=== PATIENT | female | born 1960 | race African-American/Black ===

== ENCOUNTER 2019-02-20 05:11 | Inpatient (IN) ==
[2019-02-20] MEDS ORDERED: LR 1,000 ML ONE ×2 (06:03→06:26)
[2019-02-20] MEDS ORDERED: KEFZOL 2 GM/D5W 2 GM/50 ML IVPB ONE (06:03)
[2019-02-20] MEDS ORDERED: REGLAN ONE (06:03)
[2019-02-20] MEDS ORDERED: PEPCID ONE (06:03)
[2019-02-20] MEDS ORDERED: SENSORCAINE-MPF 0.5%/EPI 1:200,000 ONE (06:26)
[2019-02-20] MEDS ORDERED: DIPRIVAN 1% ONE (06:28)
[2019-02-20] MEDS ORDERED: ROBINUL ONE ×2 (07:26→09:22)
[2019-02-20 09:18] LABS: URINE SOURCE CLEAN CATCH
[2019-02-20] MEDS ORDERED: NEOSTIGMINE ONE (09:23)
[2019-02-20 09:33] LABS: BILIRUBIN URINE NEGATIVE (NEGATIVE); BLOOD URINE SMALL (NEGATIVE); COLOR YELLOW; GLUCOSE URINE NEGATIVE (NEGATIVE); KETONE URINE NEGATIVE (NEGATIVE); LEUKOCYTES URINE LARGE (NEGATIVE); NITRITE URINE NEGATIVE (NEGATIVE); PH URINE 5.5; PROTEIN URINE 30 mg/dL (NEGATIVE); TURBIDITY URINE CLEAR (CLEAR); UROBILINOGEN URINE NORMAL (NORMAL)
[2019-02-20 09:34] LABS: UR EPITHELIAL CELLS <10 /HPF (<10); URINE BACTERIA NEGATIVE /HPF; URINE RBC <10 /HPF (<10); URINE WBC <10 /HPF (<10)
[2019-02-20] MEDS ORDERED: NS 1,000 ML ONE (10:47)
[2019-02-20] MEDS ORDERED: DILAUDID ONE (10:47)
[2019-02-20] MEDS ORDERED: MORPHINE IV PRN (12:05)
[2019-02-20] MEDS ORDERED: PHENERGAN PR PRN (12:15)
[2019-02-20] MEDS ORDERED: NORCO-7.5 PO PRN (12:15)
[2019-02-20] MEDS ORDERED: SODIUM CHLORIDE 0.9% INJ PRN (12:15)
[2019-02-20] MEDS ORDERED: NORCO-5 PO PRN (12:15)
[2019-02-20] MEDS ORDERED: OFIRMEV 1000 MG/ISOTONIC SOLN 1,000 MG/100 ML BOTTLE IV PRN (12:15)
[2019-02-20] MEDS ORDERED: DILAUDID IV PRN (12:15)
[2019-02-20] MEDS ORDERED: PHENERGAN PO PRN (12:15)
[2019-02-20] MEDS ORDERED: LABETALOL IV PRN (12:15)
[2019-02-20] MEDS ORDERED: BENADRYL LIQUID PO PRN (12:15)
[2019-02-20] MEDS ORDERED: ZOFRAN IV PRN (12:15)
[2019-02-20] MEDS ORDERED: TYLENOL PO PRN (12:15)
[2019-02-20] MEDS ORDERED: PHENERGAN IV PRN (12:15)
[2019-02-20] MEDS ORDERED: BENADRYL IV PRN (12:15)
[2019-02-20] MEDS ORDERED: COLCRYS PO PRN (14:55)
[2019-02-20] MEDS: KEFZOL 2 GM/D5W 2 GM/50 ML IVPB IV SCH ×2 (15:26→23:49)
[2019-02-20] MEDS: NORCO-10 PO PRN ×2 (17:50→21:49)
[2019-02-20] MEDS: NS 1,000 ML IV SCH ×2 (21:46→23:44)
[2019-02-20] MEDS: PERIDEX MT SCH (21:46)
[2019-02-20] MEDS: GLUCOPHAGE PO SCH (21:46)
[2019-02-20] MEDS: COLACE PO SCH (21:46)
[2019-02-21] MEDS: NORCO-10 PO PRN (05:48)
[2019-02-21] MEDS: KEFZOL 2 GM/D5W 2 GM/50 ML IVPB IV SCH (06:22)
[2019-02-21 06:50] LABS: HEMATOCRIT 34.2 % (37.0-47.0); HEMOGLOBIN 10.3 g/dL (12.0-16.0); MCH 29.3 PG (27-31); MCHC 30.1 g/dL (33-37); MCV 97.4 FL (81-99); MPV 10.1 FL (7.4-10.4); RBC 3.51 XMIL (4.2-5.4); WBC 8.24 X1000 (4.8-10.8)
[2019-02-21 07:09] LABS: CALCIUM 8.5 mg/dL (8.8-10.2); CREATININE 2.3 mg/dL (0.5-0.9)
[2019-02-21 07:38] VITALS: BP 145/122
[2019-02-21] MEDS: PERIDEX MT SCH (08:47)
[2019-02-21] MEDS: GLUCOPHAGE PO SCH (08:47)
[2019-02-21] MEDS: COLACE PO SCH (08:47)
[2019-02-21] MEDS ORDERED: ZYLOPRIM PO SCH (09:00)
[2019-02-21] MEDS ORDERED: LOPRESSOR PO SCH (09:00)
[2019-02-21] MEDS ORDERED: HYZAAR 50/12.5 MG PO SCH (09:00)
--- NOTE | 2019-03-25 08:24 | OPERATIVE NOTE ---
PROCEDURE DATE: 02/20/2019 SURGEON: Dr. Mor Burgess. PREOPERATIVE DIAGNOSES: 1. Left multicystic, dysplastic kidney. 2. Chronic urinary tract infections. 3. Flank pain. 4. Ureteral stone. 5. Ureteral stent. PROCEDURE PERFORMED: Left robotic assisted laparoscopic nephrectomy, cystoscopy with left ureteroscopy, and stent removal. INDICATIONS: A 59-year-old female with multicystic, dysplastic kidney as evidenced by CT scan, who presented with chronic UTIs and was found to have a very large left ureteral stone that was impacted into her ureteral mucosa. She underwent ureteroscopy with laser lithotripsy where most of the stone was addressed and a stent was placed in order to help drain her kidney. She now presents for definitive intervention with nephrectomy and removal of the stent. FINDINGS: She had severely inflamed perirenal tissues, making dissection extremely difficult. Please note that it took me over 50% of the time of what it would take to do a similar procedure, given the degree of inflammation. In fact, the tissues were inflamed so much that it was extremely difficult to identify the ureter. After the specimen was removed and retrieved out of the body, it was discovered that the proximal portion of the stent was indeed within the specimen, while the distal half of the stent was still in the remnant of left ureter which prompted cystoscopy and left ureteroscopy with stent removal. DESCRIPTION OF PROCEDURE: After obtaining informed consent, the patient was brought to the operating room. Perioperative antibiotics and general endotracheal anesthesia were administered. She was placed in a modified flank position with the left side up. She was prepped and draped in a sterile fashion. A 16-Nepalese Wiseman catheter was introduced prior to draping. She has had previous abdominal surgeries. We made a small stab incision in the left upper quadrant, followed by the introduction of a Veress needle connected to a saline-filled syringe. We eventually were able to confirm a positive drop test, followed by aspiration of fluid in the syringe without evidence of GI contents or blood. We then insufflated her pneumoperitoneum to 15 mmHg. The trocars remained in a standard nephrectomy fashion. Given her body habitus, I had to move the trocars laterally. Then 10 mL of 0.5% plain Marcaine were used for local anesthetic, followed by incision of the skin with Bovie electrocautery. We then introduced the robotic camera. The peritoneal cavity was inspected and I was able to place the rest of the trocars under direct vision. She was then placed in a more exaggerated flank position. The robot was docked. We began by identifying the descending colon and incising the white line of Toldt, allowing us to mobilize the colon medially. Due to her previous significant urinary tract infection including the upper tract, it was difficult to identify Gerota's fascia and instead, it appeared there was an inflammatory rind almost having the appearance of desmoplastic reaction from chemotherapy. I used the fourth arm to pull what would appear to be the kidney laterally. We then dissected the colon off more medially and eventually came to the area of the projected lower pole of the kidney. Again, due to extremely inflamed tissues, I attempted to identify the ureter and the gonadal vein but it was difficult to do so. Eventually, I was able to get under the projected area of the ureter and the vein, and lift it up superiorly, allowing us to visualize psoas muscle. I then dissected over the projected region of the hilum and was eventually able to see the gonadal vein and its confluence into the left renal vein. Following that, we carefully placed a vessel loop around the renal vein and dissected posterior to it where the renal artery was found. After that, we used endovascular DANIELA stapler and sealed off the artery as well as the vein. Subsequent to that, we started dissecting superiorly, attempting to spare the adrenal gland. During dissection, which again continued to be difficult due to toxic-appearing and the very inflamed fat, we came across part of the adrenal gland and obtained hemostasis along the way with bipolar electrocautery. Eventually, I was able to free the kidney superiorly, posteriorly, and laterally. At this point, the kidney was free and decreased pneumoperitoneal pressure to 3 mmHg revealed no evidence of active bleeding. We then grasped what appeared to be the ureter and the gonadal vein which was really encased and significantly inflamed tissue and came across it. I could not visualize the lumen of the stent. At this point, the kidney and approximately the top half of the ureter were free. Hence, we decreased pneumoperitoneal pressure once again, without evidence of active bleeding. Inspection of the abdominal cavity revealed no obvious injury to the bowel. I continued looking for the lumen of the stent but could not identify it. Hence, we elected to retrieve the specimen and then bivalve it in order to assess the stent location. We made an infraumbilical incision, dissecting through the skin, subcutaneous tissues, and eventually fascia. The specimen was removed. It was incised on the back table in half, at which point it became clear that there was approximately 50% of the stent in the renal pelvis and the top half of the ureter that was taken en bloc. We then irrigated our wounds and used #2 loop PDS to close the infra-abdominal fascia. Then 0 Vicryl was used to close the camera trocar. Wounds were copiously irrigated and 4-0 Monocryl was used for subcuticular closure, followed by application of Covidien adhesive agent. We then repositioned her into a lithotomy position. Wiseman catheter was removed. A 21-Nepalese rigid cystoscope was then used to gain access to the urethra and the bladder. There was no evidence of coil seen within the bladder but it was obvious that there was a curled stent in the distal ureter as seen by the ballooning of the distal ureter in the trigonal area. This was likely due to pulling up on the kidney during the dissection, having the stent migrate proximally. Hence, I used a rigid ureteroscope and introduced it into the ureteral remnant. The stent was seen coiled up approximately 2-3 cm away from the orifice. A 0 Nitinol basket was then used to secure the stent and it was brought out. We then combined the two parts of the stent together and it appeared that there were no missing parts of the stent at all. Her bladder was emptied. Cystoscope was removed. She was extubated and taken to the PACU for further recovery. ESTIMATED BLOOD LOSS: 300 mL. COMPLICATIONS: None. DISPOSITION: To PACU and subsequently the floor for observation. cc: Mor Burgess MD
== END 2019-02-21 09:50 | disposition home or self-care (01) | DRG 660 ==
LOC: SURHOLD 05:11 → EDSTATUS 07:00 → 4N 08:43
PROVIDERS: ADMIT Urology; ATTEND Urology
CPT/HCPCS: 80048; 81001; 82948; 85027; 87088; 88307; 94761; 94799; A9270; J0690; J1170; J7030; J7120; S2900; XXXXX